=== PATIENT | female | born 1985 | race African-American/Black ===

== ENCOUNTER 2019-02-28 21:08 | Emergency (ER) | payer OTHER ==
[~2019-02-28] VITALS: Ht 172.7 cm; Wt 59.0 kg
[2019-02-28] MEDS ORDERED: AZO STANDARD95 MG (21:21)
[2019-02-28 21:30] LABS: URINE BILIRUBIN NEGATIVE (Negative); URINE BLOOD NEGATIVE (Negative); URINE CLARITY CLEAR; URINE COLOR YELLOW; URINE GLUCOSE-RANDOM NEGATIVE (Negative); URINE KETONES TRACE (Negative); URINE LEUKOCYTES-REFLEX NEGATIVE (Negative); URINE NITRITE-REFLEX NEGATIVE (Negative); URINE PROTEIN NEGATIVE (Negative); URINE SPECIFIC GRAVITY >= 1.030 (1.005-1.030); URINE UROBILINOGEN 0.2 E.U./dl (0.2-1.0)
[2019-02-28 21:45] LABS: ABSOLUTE BASOPHILS 0.1 thou/uL (0.0-0.2); ABSOLUTE EOSINOPHILS 0.2 thou/uL (0.0-0.7); ABSOLUTE LYMPHOCYTES 2.9 thou/uL (0.8-5.3); ABSOLUTE MONOCYTES 0.4 thou/uL (0.0-1.2); ABSOLUTE NEUTROPHILS 5.6 thou/uL (1.6-8.1); BASOPHILS 0.6 %; EOSINOPHILS 2.4 %; HEMATOCRIT 40.3 % (37.0-47.0); HEMOGLOBIN 13.4 gm/dL (12.0-15.0); LYMPHOCYTES 31.3 %; MCH 29.3 pg (26.0-34.0); MCHC 33.2 g/dL (28.0-37.0); MCV 88.1 fL (80.0-100.0); MONOCYTES 4.5 %; MPV 7.8 fl. (7.2-11.1); NUCLEATED RBCS 0 /100WBC; PLATELET COUNT* 216 thou/uL (150-400); POLYS 61.2 %; RBC 4.57 mil/uL (4.20-5.00); RDW-CV 14.3 % (10.5-14.5); WBC 9.1 thou/uL (4.0-11.0)
[2019-02-28 22:00] LABS: CALCIUM 8.9 mg/dL (8.5-10.1); CREATININE 0.8 mg/dL (0.6-1.3); POTASSIUM 3.7 mmol/L (3.5-5.1)
[2019-02-28 22:05] LABS: ALBUMIN 4.2 g/dL (3.4-5.0); TOTAL BILIRUBIN 0.3 mg/dL (<0.1-1.0); TOTAL PROTEIN 7.9 g/dL (6.4-8.2)
[2019-02-28 22:55] VITALS: BP 114/77
== END 2019-02-28 22:55 | disposition home or self-care (01) ==
LOC: M.ERS 21:08
PROVIDERS: Personal Emergency Response Attendant
DX: Z32.01 Encounter for pregnancy test, result positive (principal); R10.2 Pelvic and perineal pain; F17.200 Nicotine dependence, unspecified, uncomplicated

== ENCOUNTER 2019-03-11 18:25 | Emergency (ER) | payer OTHER ==
[~2019-03-11] VITALS: Ht 172.7 cm; Wt 58.5 kg
[~2019-03-11 18:25] MED LIST: AZO STANDARD95 MG
[2019-03-11 18:40] VITALS: BP 108/66
[2019-03-11 18:50] LABS: URINE BILIRUBIN 1+ (Negative); URINE BLOOD NEGATIVE (Negative); URINE CLARITY CLEAR; URINE COLOR YELLOW; URINE GLUCOSE-RANDOM NEGATIVE (Negative); URINE KETONES 2+ (Negative); URINE LEUKOCYTES-REFLEX 1+ (Negative); URINE NITRITE-REFLEX NEGATIVE (Negative); URINE PROTEIN TRACE (Negative); URINE SPECIFIC GRAVITY >= 1.030 (1.005-1.030); URINE UROBILINOGEN 0.2 E.U./dl (0.2-1.0)
[2019-03-11 18:52] LABS: ICTOTEST (BILI CONFIRMATORY) Negative (Negative)
[2019-03-11 18:58] LABS: BACTERIA-REFLEX 1-9 Few /HPF (None Seen); CASTS None Seen /LPF (None Seen); CRYSTALS None Seen /LPF (None Seen); SQUAMOUS 0-3 Few /LPF (0-3); URINE RBC 0-2 Rare /HPF (0-2); URINE WBC-REFLEX 6-15 Few /HPF (0-5)
[2019-03-11] MEDS ORDERED: KEFLEX500 M1 PO (19:17)
[2019-03-11] MEDS ORDERED: MONISTAT 745 GM MISCELL (19:17)
== END 2019-03-11 19:24 | disposition home or self-care (01) ==
LOC: M.ERS 18:25
PROVIDERS: Nurse Practitioner Psychiatric/Mental Health
DX: O23.41 Unspecified infection of urinary tract in pregnancy, first trimester (principal); O99.331 Smoking (tobacco) complicating pregnancy, first trimester; Z3A.01 Less than 8 weeks gestation of pregnancy

== ENCOUNTER 2019-12-28 11:29 | Emergency (ER) | payer OTHER, MEDICAID ==
[~2019-12-28] VITALS: Ht 175.3 cm; Wt 61.7 kg
[~2019-12-28 11:29] MED LIST changes: +KEFLEX500 M1 PO; +MONISTAT 745 GM MISCELL
[2019-12-28] MEDS ORDERED: ZOLOFT20 MG/1 ML PO (11:42)
[2019-12-28] MEDS ORDERED: XANAX2 MG PO (11:42)
[2019-12-28] MEDS ORDERED: AWAKE200 MG PO (11:43)
[2019-12-28] MEDS ORDERED: IRON18 M1 PO (11:43)
[2019-12-28] MEDS ORDERED: VISTARIL 25 MG25 M1 PO (12:11)
[2019-12-28 12:17] LABS: URINE BILIRUBIN NEGATIVE (Negative); URINE BLOOD 1+ (Negative); URINE CLARITY CLEAR; URINE COLOR YELLOW; URINE GLUCOSE-RANDOM NEGATIVE (Negative); URINE KETONES NEGATIVE (Negative); URINE NITRITE-REFLEX NEGATIVE (Negative); URINE PROTEIN TRACE (Negative); URINE SPECIFIC GRAVITY >= 1.030 (1.005-1.030); URINE UROBILINOGEN 0.2 E.U./dl (0.2-1.0)
[2019-12-28 12:18] LABS: URINE LEUKOCYTES-REFLEX 2+ (Negative)
[2019-12-28 12:27] LABS: SQUAMOUS 4-10 Moderate /LPF (0-3)
[2019-12-28 12:28] LABS: CASTS None Seen /LPF (None Seen); CRYSTALS None Seen /LPF (None Seen); MUCUS 4-6 Moderate strn/LPF (None Seen); URINE RBC 3-10 Few /HPF (0-2); URINE WBC-REFLEX 6-15 Few /HPF (0-5)
[2019-12-28 13:15] LABS: ABSOLUTE EOSINOPHILS 0.1 thou/uL (0.0-0.7); ABSOLUTE LYMPHOCYTES 1.5 thou/uL (0.8-5.3); ABSOLUTE MONOCYTES 0.3 thou/uL (0.0-1.2); ABSOLUTE NEUTROPHILS 5.4 thou/uL (1.6-8.1); BASOPHILS 0.6 %; EOSINOPHILS 1.4 %; HEMATOCRIT 34.1 % (37.0-47.0); LYMPHOCYTES 20.4 %; MCH 25.1 pg (26.0-34.0); MCHC 32.4 g/dL (28.0-37.0); MCV 77.5 fL (80.0-100.0); MONOCYTES 4.5 %; MPV 7.8 fl. (7.2-11.1); NUCLEATED RBCS 0 /100WBC; PLATELET COUNT* 261 thou/uL (150-400); POLYS 73.1 %; RDW-CV 16.9 % (10.5-14.5); WBC 7.4 thou/uL (4.0-11.0)
[2019-12-28 13:25] LABS: CALCIUM 8.6 mg/dL (8.5-10.1); CREATININE 0.7 mg/dL (0.6-1.3); POTASSIUM 3.7 mmol/L (3.5-5.1)
[2019-12-28 13:29] LABS: ALBUMIN 4.4 g/dL (3.4-5.0); TOTAL BILIRUBIN 0.5 mg/dL (<0.1-1.0); TOTAL PROTEIN 8.2 g/dL (6.4-8.2)
[2019-12-28] MEDS ORDERED: KEFLEX500 M1 PO (13:35)
[2019-12-28 13:51] VITALS: BP 106/57
--- NOTE | 2019-12-28 15:12 | EKG ---
[place] [address] ELECTROCARDIOGRAM REPORT Name: ANI AKBARKARIE Sylvie Room: [facility]#: [id number] Admission: 12/28/19 Attend Phys: Discharge: 12/28/19 Date of : 81 Date of Service: 12/28/19 1209 Report #: [id number] THIS REPORT FOR: //name// [facility] ED Test Date: 2019-12-28 Test Time: 12:09:46 Pat Name: ARSALAN AKBAR Department: Room: Gender: Carbonizer: FRANZ : 1985 Requested By: Natalie Breen Order Number: [id number] MD: Isma Beltre Measurements Intervals [place] Rate: 62 P: 27 GA: 193 QRS: 47 QRSD: 90 T: 50 QT: 427 QTc: 434 Interpretive Statements Sinus rhythm No previous ECG available for comparison Electronically Signed On 12-28-2019 15:11:15 CDT by Isma Beltre [email or web address] <ELECTRONICALLY SIGNED> By: Isma Beltre MD, [facility] 12/28/19 1511 1209 1209 Isma Beltre MD, FACC /EPI
== END 2019-12-28 13:52 | disposition home or self-care (01) ==
LOC: M.ERS 11:29
PROVIDERS: Physician Assistant
DX: F41.9 Anxiety disorder, unspecified (principal); N39.0 Urinary tract infection, site not specified

== ENCOUNTER 2020-01-20 17:59 | Emergency (ER) | payer OTHER, MEDICAID ==
[~2020-01-20] VITALS: Ht 172.7 cm; Wt 61.7 kg
[~2020-01-20 17:59] MED LIST changes: +AWAKE200 MG PO; +IRON18 M1 PO; +VISTARIL 25 MG25 M1 PO; +XANAX2 MG PO; +ZOLOFT20 MG/1 ML PO
[2020-01-20 18:30] LABS: ABSOLUTE EOSINOPHILS 0.2 thou/uL (0.0-0.7); ABSOLUTE LYMPHOCYTES 2.3 thou/uL (0.8-5.3); ABSOLUTE MONOCYTES 0.4 thou/uL (0.0-1.2); BASOPHILS 0.7 %; EOSINOPHILS 3.5 %; HEMATOCRIT 43.7 % (37.0-47.0); HEMOGLOBIN 14.4 gm/dL (12.0-15.0); MCH 26.4 pg (26.0-34.0); MONOCYTES 5.4 %; MPV 8.1 fl. (7.2-11.1); NUCLEATED RBCS 0 /100WBC; PLATELET COUNT* 265 thou/uL (150-400); POLYS 57.4 %; RBC 5.46 mil/uL (4.20-5.00); RDW-CV 20.1 % (10.5-14.5); WBC 6.9 thou/uL (4.0-11.0)
[2020-01-20 18:39] LABS: CREATININE 0.9 mg/dL (0.6-1.3); POTASSIUM 3.7 mmol/L (3.5-5.1)
[2020-01-20 18:48] LABS: ALBUMIN 5.1 g/dL (3.4-5.0); MAGNESIUM 2.1 mg/dL (1.8-2.4); TOTAL BILIRUBIN 0.4 mg/dL (<0.1-1.0)
[2020-01-20 18:53] LABS: ANISOCYTOSIS 2+; PLATELET ESTIMATE ADEQUATE; POIKILOCYTOSIS Occasional
[2020-01-20 20:11] VITALS: BP 103/68
--- NOTE | 2020-01-21 11:22 | EKG ---
[place] [address] ELECTROCARDIOGRAM REPORT Name: ARSALAN AKBAR Room: [facility]#: [id number] Admission: 01/20/20 Attend Phys: Discharge: 01/20/20 Date of : 81 Date of Service: 01/20/201801 Report #: [id number] THIS REPORT FOR: //name// 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
== END 2020-01-20 20:12 | disposition home or self-care (01) ==
LOC: M.ERS 17:59
PROVIDERS: Emergency Medicine Emergency Medical Services
DX: F41.9 Anxiety disorder, unspecified (principal); R07.89 Other chest pain

== ENCOUNTER 2020-05-08 21:44 | Emergency (ER) | payer OTHER, MEDICAID ==
[~2020-05-08] VITALS: Ht 172.7 cm; Wt 62.1 kg
[2020-05-08 22:18] LABS: URINE BILIRUBIN NEGATIVE (Negative); URINE BLOOD NEGATIVE (Negative); URINE CLARITY CLEAR; URINE COLOR YELLOW; URINE GLUCOSE-RANDOM NEGATIVE (Negative); URINE KETONES NEGATIVE (Negative); URINE LEUKOCYTES-REFLEX NEGATIVE (Negative); URINE NITRITE-REFLEX NEGATIVE (Negative); URINE PROTEIN NEGATIVE (Negative); URINE SPECIFIC GRAVITY >= 1.030 (1.005-1.030); URINE UROBILINOGEN 0.2 E.U./dl (0.2-1.0)
[2020-05-08 22:24] LABS: ABSOLUTE BASOPHILS 0.1 thou/uL (0.0-0.2); ABSOLUTE EOSINOPHILS 0.2 thou/uL (0.0-0.7); ABSOLUTE LYMPHOCYTES 3.1 thou/uL (0.8-5.3); ABSOLUTE MONOCYTES 0.5 thou/uL (0.0-1.2); ABSOLUTE NEUTROPHILS 3.9 thou/uL (1.6-8.1); BASOPHILS 0.8 %; HEMATOCRIT 37.8 % (37.0-47.0); HEMOGLOBIN 12.7 gm/dL (12.0-15.0); MCH 27.9 pg (26.0-34.0); MCHC 33.7 g/dL (28.0-37.0); MCV 82.9 fL (80.0-100.0); MONOCYTES 6.2 %; MPV 7.3 fl. (7.2-11.1); NUCLEATED RBCS 0 /100WBC; PLATELET COUNT* 239 thou/uL (150-400); RBC 4.56 mil/uL (4.20-5.00); RDW-CV 13.2 % (10.5-14.5); WBC 7.7 thou/uL (4.0-11.0)
[2020-05-08 22:26] LABS: AMP/METHAMP Negative (Negative); BARBITURATES POSITIVE (Negative); BENZODIAZEPINES Negative (Negative); COCAINE Negative (Negative); METHADONE Negative (Negative); OPIATES Negative (Negative); PCP Negative (Negative); THC POSITIVE (Negative)
[2020-05-08 22:31] LABS: CALCIUM 8.4 mg/dL (8.5-10.1); CREATININE 0.8 mg/dL (0.6-1.3); POTASSIUM 3.2 mmol/L (3.5-5.1)
[2020-05-08 22:35] LABS: ALBUMIN 4.3 g/dL (3.4-5.0); TOTAL BILIRUBIN 0.3 mg/dL (<0.1-1.0)
[2020-05-08 23:00] VITALS: BP 112/72
--- NOTE | 2020-05-09 13:48 | EKG ---
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: [place] : 1985 Requested By: Daquan Ames Order Number: [id number] Reading MD: Isma Beltre Measurements Intervals [place] Rate: 83 P: 36 SD: 170 QRS: 21 QRSD: 86 T: 37 QT: 362 QTc: 426 Interpretive Statements Sinus rhythm Consider left ventricular hypertrophy Baseline wander in lead(s) V1 Compared to ECG 01/20/2020 18:02:23 No significant changes Electronically Signed On 05-09-2020 13:48:32 CDT by Isma Beltre [email or web address] <ELECTRONICALLY SIGNED> By: Isma Beltre MD, [facility] 05/09/20 1348 2152 2152 Isma Beltre MD, [facility] /EPI
== END 2020-05-08 23:02 | disposition home or self-care (01) ==
LOC: M.ERS 21:44
PROVIDERS: Emergency Medicine Emergency Medical Services
DX: R00.2 Palpitations (principal); Z79.899 Other long term (current) drug therapy

== ENCOUNTER 2020-05-14 20:48 | Emergency (ER) | payer OTHER, MEDICAID ==
[~2020-05-14] VITALS: Ht 172.7 cm; Wt 63.5 kg
[2020-05-14 21:42] LABS: ABSOLUTE EOSINOPHILS 0.1 thou/uL (0.0-0.7); ABSOLUTE MONOCYTES 0.3 thou/uL (0.0-1.2); ABSOLUTE NEUTROPHILS 3.7 thou/uL (1.6-8.1); BASOPHILS 0.5 %; HEMATOCRIT 40.3 % (37.0-47.0); HEMOGLOBIN 13.4 gm/dL (12.0-15.0); LYMPHOCYTES 41.8 %; MCHC 33.4 g/dL (28.0-37.0); MONOCYTES 4.3 %; MPV 7.4 fl. (7.2-11.1); NUCLEATED RBCS 0 /100WBC; PLATELET COUNT* 229 thou/uL (150-400); POLYS 51.4 %; RDW-CV 13.4 % (10.5-14.5); WBC 7.2 thou/uL (4.0-11.0)
[2020-05-14 21:53] LABS: CALCIUM 8.9 mg/dL (8.5-10.1); CREATININE 0.9 mg/dL (0.6-1.3); POTASSIUM 3.3 mmol/L (3.5-5.1)
[2020-05-14] MEDS ORDERED: HYDROXYZINE HCL25 M2 PO (22:24)
[2020-05-14] MEDS ORDERED: LEXAPRO 10 MG T10 M1 PO (22:24)
[2020-05-14 22:40] VITALS: BP 123/80
--- NOTE | 2020-05-15 09:43 | EKG ---
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[place] : 1985 Requested By: Mary Kowalski Order Number: [id number] MD: Isma Beltre Measurements Intervals [place] Rate: 120 P: 52 [place]: 171 QRS: 30 QRSD: 88 T: 54 QT: 316 QTc: 447 Interpretive Statements Sinus tachycardia LAE, consider biatrial enlargement RSR' in V1 or V2, right VCD or RVH Compared to ECG 05/08/2020 21:52:33 RSR' in V1 or V2 now present Sinus rhythm no longer present Electronically Signed On 05-15-2020 9:43:28 CDT by Isma Beltre [email or web address] <ELECTRONICALLY SIGNED> By: Isma Beltre MD, FACC 05/15/20 0943 55 55 Isma Beltre MD, FAC /EPI
== END 2020-05-14 22:40 | disposition home or self-care (01) ==
LOC: M.ERS 20:48
PROVIDERS: Emergency Medicine
DX: F41.9 Anxiety disorder, unspecified (principal); Z98.890 Other specified postprocedural states

== ENCOUNTER 2020-07-04 07:09 | Emergency (ER) | payer OTHER, MEDICAID ==
[~2020-07-04] VITALS: Ht 175.3 cm; Wt 68.0 kg
[~2020-07-04 07:09] MED LIST changes: +HYDROXYZINE HCL25 M2 PO; +LEXAPRO 10 MG T10 M1 PO
[2020-07-04] MEDS ORDERED: MIRTAZAPINE7.5 MG PO (07:23)
[2020-07-04 07:50] LABS: URINE BLOOD 3+ (Negative); URINE CLARITY CLOUDY; URINE COLOR BROWN; URINE GLUCOSE-RANDOM TRACE (Negative); URINE KETONES NEGATIVE (Negative); URINE LEUKOCYTES-REFLEX TRACE (Negative); URINE PROTEIN 2+ (Negative); URINE SPECIFIC GRAVITY >= 1.030 (1.005-1.030)
[2020-07-04 07:54] LABS: ICTOTEST (BILI CONFIRMATORY) Negative (Negative); URINE BILIRUBIN 2+ (Negative); URINE NITRITE-REFLEX POSITIVE (Negative)
[2020-07-04 08:07] LABS: SQUAMOUS 4-10 Moderate /LPF (0-3)
[2020-07-04] MEDS ORDERED: BACTRIM DS TAB1 EAC1 PO (08:07)
[2020-07-04] MEDS ORDERED: PYRIDIUM200 MG PO ×2 (08:07→08:12)
[2020-07-04 08:10] LABS: MUCUS 0-3 Light strn/LPF (None Seen); URINE RBC >20 Many /HPF (0-2)
[2020-07-04 08:11] LABS: CASTS None Seen /LPF (None Seen); CRYSTALS None Seen /LPF (None Seen)
[2020-07-04] MEDS ORDERED: KEFLEX500 M1 PO (08:12)
[2020-07-04 08:17] VITALS: BP 124/77
== END 2020-07-04 08:18 | disposition home or self-care (01) ==
LOC: M.ERS 07:09
PROVIDERS: Emergency Medicine Emergency Medical Services
DX: N39.0 Urinary tract infection, site not specified (principal)

== ENCOUNTER 2020-07-29 17:16 | Emergency (ER) | payer OTHER, MEDICAID ==
[~2020-07-29] VITALS: Ht 172.7 cm; Wt 67.6 kg
[~2020-07-29 17:16] MED LIST changes: +BACTRIM DS TAB1 EAC1 PO; +MIRTAZAPINE7.5 MG PO; +PYRIDIUM200 MG PO
[2020-07-29] MEDS ORDERED: ABILIFY10 MG PO (17:37)
[2020-07-29 18:17] LABS: ABSOLUTE EOSINOPHILS 0.2 thou/uL (0.0-0.7); ABSOLUTE LYMPHOCYTES 2.4 thou/uL (0.8-5.3); ABSOLUTE MONOCYTES 0.4 thou/uL (0.0-1.2); ABSOLUTE NEUTROPHILS 4.3 thou/uL (1.6-8.1); BASOPHILS 0.6 %; HEMATOCRIT 39.1 % (37.0-47.0); HEMOGLOBIN 12.8 gm/dL (12.0-15.0); LYMPHOCYTES 32.6 %; MCH 26.5 pg (26.0-34.0); MCHC 32.7 g/dL (28.0-37.0); MCV 80.9 fL (80.0-100.0); MONOCYTES 5.7 %; MPV 7.4 fl. (7.2-11.1); NUCLEATED RBCS 0 /100WBC; PLATELET COUNT* 264 thou/uL (150-400); POLYS 58.1 %; RBC 4.83 mil/uL (4.20-5.00); RDW-CV 13.7 % (10.5-14.5); WBC 7.4 thou/uL (4.0-11.0)
[2020-07-29 18:27] LABS: CREATININE 0.8 mg/dL (0.6-1.3); POTASSIUM 3.1 mmol/L (3.5-5.1)
[2020-07-29 18:31] LABS: ALBUMIN 4.3 g/dL (3.4-5.0); TOTAL BILIRUBIN 0.3 mg/dL (<0.1-1.0); TOTAL PROTEIN 8.2 g/dL (6.4-8.2)
[2020-07-29 19:16] LABS: URINE BILIRUBIN NEGATIVE (Negative); URINE BLOOD NEGATIVE (Negative); URINE CLARITY CLEAR; URINE COLOR YELLOW; URINE GLUCOSE-RANDOM NEGATIVE (Negative); URINE KETONES TRACE (Negative); URINE LEUKOCYTES NEGATIVE (Negative); URINE NITRITE NEGATIVE (Negative); URINE PROTEIN NEGATIVE (Negative); URINE SPECIFIC GRAVITY >= 1.030 (1.005-1.030); URINE UROBILINOGEN 0.2 E.U./dl (0.2-1.0)
[2020-07-29 19:24] LABS: AMP/METHAMP Negative (Negative); BARBITURATES Negative (Negative); BENZODIAZEPINES Negative (Negative); COCAINE Negative (Negative); METHADONE Negative (Negative); OPIATES Negative (Negative); PCP Negative (Negative); THC Negative (Negative)
[2020-07-29 19:40] VITALS: BP 119/78
--- NOTE | 2020-07-30 17:54 | EKG ---
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: [facility] : 1985 Requested By: Daquan Ames Order Number: [id number] MD: Julio Cesar Garcia Measurements Intervals [place] Rate: 113 P: 52 [place]: 166 QRS: 43 QRSD: 80 T: 51 QT: 314 QTc: 431 Interpretive Statements Sinus tachycardia Consider left ventricular hypertrophy Compared to ECG 05/14/2020 20:56:22 Right ventricular hypertrophy no longer present Electronically Signed On 07-30-2020 17:54:04 CDT by Julio Cesar Garcia [email or web address] <ELECTRONICALLY SIGNED> By: Julio Cesar Garcia MD, [facility] 07/30/20 1754 172 172 Julio Cesar Garcia MD, [facility] /EPI
== END 2020-07-29 19:40 | disposition home or self-care (01) ==
LOC: M.ERS 17:16
PROVIDERS: Emergency Medicine Emergency Medical Services
DX: F41.9 Anxiety disorder, unspecified (principal); F17.210 Nicotine dependence, cigarettes, uncomplicated; Z79.899 Other long term (current) drug therapy

== ENCOUNTER 2020-09-19 21:01 | Emergency (ER) | payer OTHER, MEDICAID ==
[~2020-09-19] VITALS: Ht 172.7 cm; Wt 68.0 kg
[~2020-09-19 21:01] MED LIST changes: +ABILIFY10 MG PO
[2020-09-19] MEDS ORDERED: LORAZEPAM 0.50.5 MG PO (21:19)
[2020-09-19 21:58] LABS: ABSOLUTE EOSINOPHILS 0.2 thou/uL (0.0-0.7); ABSOLUTE LYMPHOCYTES 2.4 thou/uL (0.8-5.3); ABSOLUTE MONOCYTES 0.4 thou/uL (0.0-1.2); ABSOLUTE NEUTROPHILS 3.6 thou/uL (1.6-8.1); BASOPHILS 0.3 %; EOSINOPHILS 3.4 %; HEMATOCRIT 39.2 % (37.0-47.0); HEMOGLOBIN 12.8 gm/dL (12.0-15.0); LYMPHOCYTES 36.2 %; MCHC 32.6 g/dL (28.0-37.0); MCV 82.7 fL (80.0-100.0); MONOCYTES 5.4 %; MPV 7.9 fl. (7.2-11.1); NUCLEATED RBCS 0 /100WBC; PLATELET COUNT* 226 thou/uL (150-400); POLYS 54.7 %; RBC 4.74 mil/uL (4.20-5.00); RDW-CV 14.6 % (10.5-14.5); WBC 6.6 thou/uL (4.0-11.0)
[2020-09-19 21:59] LABS: URINE BILIRUBIN NEGATIVE (Negative); URINE BLOOD NEGATIVE (Negative); URINE CLARITY CLEAR; URINE COLOR YELLOW; URINE GLUCOSE-RANDOM NEGATIVE (Negative); URINE KETONES NEGATIVE (Negative); URINE LEUKOCYTES-REFLEX NEGATIVE (Negative); URINE NITRITE-REFLEX NEGATIVE (Negative); URINE PROTEIN NEGATIVE (Negative); URINE SPECIFIC GRAVITY 1.025 (1.005-1.030); URINE UROBILINOGEN 0.2 E.U./dl (0.2-1.0)
[2020-09-19 22:03] LABS: PROTIME 10.5 Seconds (9.20-11.50)
[2020-09-19 22:07] LABS: CALCIUM 8.7 mg/dL (8.5-10.1); CREATININE 0.7 mg/dL (0.6-1.3); POTASSIUM 3.6 mmol/L (3.5-5.1)
[2020-09-19 22:11] LABS: ALBUMIN 4.3 g/dL (3.4-5.0); TOTAL BILIRUBIN 0.2 mg/dL (<0.1-1.0); TOTAL PROTEIN 8.1 g/dL (6.4-8.2)
[2020-09-19 22:27] VITALS: BP 124/66
--- NOTE | 2020-09-20 17:28 | EKG ---
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: : 1985 Requested By: Mary Kowalski Order Number: [id number] MD: Cali Faustin Measurements Intervals [place] Rate: 112 P: 57 [place]: 177 QRS: 22 QRSD: 83 T: 33 QT: 326 QTc: 445 Interpretive Statements Sinus tachycardia Consider left ventricular hypertrophy Baseline wander in lead(s) V5,V6 Compared to ECG 07/29/2020 17:22:10 No significant changes Electronically Signed On 09-20-2020 17:28:12 [employer] by Cali Faustin [email or web address] <ELECTRONICALLY SIGNED> By: Cali Faustin MD, [facility] 09/20/20 1728 04 04 Cali Faustin MD, [facility] /EPI
== END 2020-09-19 22:28 | disposition home or self-care (01) ==
LOC: M.ERS 21:01
PROVIDERS: Emergency Medicine
DX: F41.9 Anxiety disorder, unspecified (principal); F17.210 Nicotine dependence, cigarettes, uncomplicated

== ENCOUNTER 2020-10-21 22:53 | Emergency (ER) | payer OTHER, MEDICAID ==
[~2020-10-21] VITALS: Ht 175.3 cm; Wt 70.8 kg
[~2020-10-21 22:53] MED LIST changes: +LORAZEPAM 0.50.5 MG PO
[2020-10-21 23:29] VITALS: BP 124/70
--- NOTE | 2020-10-22 12:54 | EKG ---
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: : 1985 Requested By: Mary Kowalski Order Number: [id number] Reading MD: Isma Beltre Measurements Intervals [place] Rate: 102 P: 39 [place]: 161 QRS: 20 QRSD: 87 T: 31 QT: 329 QTc: 429 Interpretive Statements Sinus tachycardia Consider left ventricular hypertrophy Baseline wander in lead(s) I,III,aVL,aVF Compared to ECG 09/19/2020 21:05:46 No significant changes Electronically Signed On 10-22-2020 12:54:08 INTERVENTIONAL PHYSICIAN by Isma Beltre [email or web address] <ELECTRONICALLY SIGNED> By: Isma Beltre MD, FAC 10/22/20 1254 01 01 Isma Beltre MD, [facility] /EPI
== END 2020-10-21 23:29 | disposition home or self-care (01) ==
LOC: M.ERS 22:53
DX: F41.9 Anxiety disorder, unspecified (principal); F17.210 Nicotine dependence, cigarettes, uncomplicated; Z79.899 Other long term (current) drug therapy

== ENCOUNTER 2021-02-13 13:22 | Emergency (ER) | payer OTHER, MEDICAID ==
[~2021-02-13] VITALS: Ht 172.7 cm; Wt 72.6 kg
[2021-02-13] MEDS ORDERED: ZOLOFT50 M1 PO (13:39)
[2021-02-13] MEDS ORDERED: TESSALON PERLE100 MG PO (14:43)
[2021-02-13 14:45] VITALS: BP 136/87
== END 2021-02-13 14:45 | disposition home or self-care (01) ==
LOC: M.ERS 13:22
DX: J06.9 Acute upper respiratory infection, unspecified (principal); Z20.822 Contact with and (suspected) exposure to COVID-19; F17.210 Nicotine dependence, cigarettes, uncomplicated